=== PATIENT | male | born 1980 | race Caucasian/White ===

== ENCOUNTER 2018-06-24 22:52 | Emergency (ER) | payer OTHER ==
[2018-06-24] MEDS ORDERED: IBUPROFEN 600 MG TABLET ONE (23:49)
[2018-06-24] MEDS ORDERED: AMOXICILLIN 500 MG CAPSULE PO ONE (23:49)
== END 2018-06-25 00:54 | disposition home or self-care (01) ==
LOC: EDH 22:52
DX: K04.7 Periapical abscess without sinus (principal)

== ENCOUNTER 2018-06-26 09:06 | Inpatient (IN) | payer SELFPAY ==
[~2018-06-26] VITALS: Ht 188 cm; Wt 82.1 kg
[2018-06-26] MEDS ORDERED: IBUPROFEN 600 MG TABLET ONE (10:05)
[2018-06-26] MEDS ORDERED: CLINDAMYCIN 600 MG/D5% WATER 50 ML IV ONE ×2 (11:12→23:38)
[2018-06-26] MEDS ORDERED: SODIUM CHLORIDE 0.9% 1000ML 1,000 ML IV ONE (11:12)
[2018-06-26] MEDS: SODIUM CHLORIDE 0.9% 1000ML 1,000 ML IV SCH ×2 (11:23→21:23)
[2018-06-26 11:24] LABS: BASOPHILS % (AUTO) 0.6 % (0.0-5.0); EOSINOPHILS % (AUTO) 8.1 % (0.0-8.0); HEMATOCRIT 43.4 % (42-54); LYMPHOCYTES % (AUTO) 23.1 % (21.0-51.0); MEAN CORPUSCULAR HEMOGLOBIN 29.4 pg (27.0-33.0); MEAN CORPUSCULAR HGB CONC 34.2 g/dL (32.0-36.0); MEAN CORPUSCULAR VOLUME 85.9 fL (79-99); MONOCYTES % (AUTO) 7.9 % (3.0-13.0); NEUTROPHILS % (AUTO) 60.3 % (40.0-77.0); NUCLEATED RED BLOOD CELLS 0.1 % (0.0-0.19); PLATELET COUNT (AUTO) 239 K/uL (130-400); RED BLOOD CELL COUNT(AUTO) 5.05 MIL/uL (4.50-6.20); WHITE BLOOD COUNT (AUTO) 7.5 K/uL (4.8-10.8)
[2018-06-26] MEDS ORDERED: HYDROCODONE/ACETAMINOPHEN 5/325 MG TAB PO PRN ×2 (11:30)
[2018-06-26] MEDS ORDERED: ONDANSETRON HCL 4 MG/2 ML VIAL IV PRN (11:30)
[2018-06-26] MEDS ORDERED: ACETAMINOPHEN 325 MG TAB PO PRN (11:30)
[2018-06-26] MEDS ORDERED: LACTULOSE 20 GM/30 ML UDCUP PO PRN (11:30)
[2018-06-26] MEDS ORDERED: HYDRALAZINE HCL 20 MG/ML VIAL IV PRN (11:30)
[2018-06-26 11:31] LABS: CREATININE 1.3 mg/dL (0.5-1.5); POTASSIUM 3.7 mmol/L (3.5-5.1)
[2018-06-26 11:36] LABS: ALBUMIN 3.7 g/dL (3.5-5.0); BILIRUBIN,TOTAL 0.5 mg/dL (0.2-1.0); TOTAL PROTEIN, SERUM 7.5 g/dL (6.0-8.3)
[2018-06-26 11:47] LABS: HEMOGLOBIN A1C 5.8 % (4.0-6.0)
[2018-06-26] MEDS ORDERED: CLINDAMYCIN 600 MG/D5% WATER 50 ML IV SCH (20:00)
[2018-06-26] MEDS: FAMOTIDINE/PF 20 MG/2 ML VIAL IV SCH (21:00)
[2018-06-26] MEDS ORDERED: FAMOTIDINE/PF 20 MG/2 ML VIAL IV ONE ×2 (21:44→21:48)
[2018-06-26] MEDS ORDERED: HYDROCODONE/ACETAMINOPHEN 5/325 MG TAB ONE (23:43)
[2018-06-27] VITALS (23 sets, daily range): BP systolic 108–146; BP diastolic 61–96
[2018-06-27] MEDS: SODIUM CHLORIDE 0.9% 1000ML 1,000 ML IV SCH ×2 (04:53→22:15)
[2018-06-27 05:43] LABS: INR 0.98 (0.85-1.15); PARTIAL THROMBOPLASTIN TIME 30.3 SEC (26.3-35.5); PROTHROMBIN TIME 10.3 SEC (9.6-11.6)
[2018-06-27] MEDS: FAMOTIDINE/PF 20 MG/2 ML VIAL IV SCH ×2 (08:09→22:13)
[2018-06-27] MEDS: CLINDAMYCIN 600 MG/D5% WATER 50 ML IV SCH ×2 (08:09→15:56)
[2018-06-27] MEDS ORDERED: LACTATED RINGERS 1000ML 1,000 ML IV ONE (09:40)
[2018-06-27] MEDS ORDERED: LIDOCAINE PF 2% 5ML ABBOJECT ONE (09:55)
[2018-06-27] MEDS ORDERED: ROCURONIUM 10MG/1ML SYR 10 MG/ML ML ONE (09:56)
[2018-06-27] MEDS ORDERED: PROPOFOL 10 MG/ML 20ML VIAL IV ONE (09:56)
[2018-06-27] MEDS ORDERED: FENTANYL CITRATE PF 50 MCG/1 ML 2ML VIAL ONE (09:56)
[2018-06-27] MEDS ORDERED: ONDANSETRON HCL 4 MG/2 ML VIAL ONE (09:56)
[2018-06-27] MEDS ORDERED: MIDAZOLAM HCL 1 MG/ML 2ML VIAL ONE (09:56)
[2018-06-27] MEDS ORDERED: NEOMY SULF/POLYMYXIN B SULFATE 1 ML AMPUL IR ONE (10:30)
[2018-06-27] MEDS ORDERED: MEPERIDINE-PF 25 MG/ML SYG ONE (10:52)
[2018-06-27] MEDS: ACETAMINOPHEN 325 MG TAB PO PRN ×2 (13:45→14:09)
--- NOTE | 2018-06-27 17:13 | NUR ---
INITIAL: Met with pt this afternoon to discuss dcp. 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 He mentions that his home is in [place]. Prior to admission pt was independent w ambulation and ADLs. Does not own any DME. Pt states that he will be staying w his friend Kelvin Gonzalez @ [place] and plans to drive his trailer when ready. Discussed $4 prescription drug program avail at [facility] or [facility]. Pt verbalizes understanding. Addendum: 06/27/18 at 1716 by JORDAN BARR CM Amended: Links added.
[2018-06-27] MEDS: IBUPROFEN 800 MG TAB PO PRN (22:14)
[2018-06-28] MEDS: CLINDAMYCIN 600 MG/D5% WATER 50 ML IV SCH ×3 (00:09→16:02)
[2018-06-28 00:15] VITALS: BP 119/64
[2018-06-28 04:30] VITALS: BP 117/72
[2018-06-28] MEDS: SODIUM CHLORIDE 0.9% 1000ML 1,000 ML IV SCH ×3 (05:15→18:30)
[2018-06-28 06:59] LABS: BASOPHILS % (AUTO) 0.4 % (0.0-5.0); EOSINOPHILS % (AUTO) 9.5 % (0.0-8.0); HEMATOCRIT 39.2 % (42-54); LYMPHOCYTES % (AUTO) 31.6 % (21.0-51.0); MEAN CORPUSCULAR HEMOGLOBIN 29.4 pg (27.0-33.0); MEAN CORPUSCULAR HGB CONC 34.3 g/dL (32.0-36.0); MEAN CORPUSCULAR VOLUME 85.7 fL (79-99); MONOCYTES % (AUTO) 9.9 % (3.0-13.0); NEUTROPHILS % (AUTO) 48.6 % (40.0-77.0); NUCLEATED RED BLOOD CELLS 0.1 % (0.0-0.19); PLATELET COUNT (AUTO) 249 K/uL (130-400); RED BLOOD CELL COUNT(AUTO) 4.57 MIL/uL (4.50-6.20); RED CELL DISTRIBUTION WIDTH 13.7 % (11.0-15.5); WHITE BLOOD COUNT (AUTO) 6.9 K/uL (4.8-10.8)
[2018-06-28 07:00] VITALS: BP 126/75
[2018-06-28 07:15] LABS: CREATININE 1.5 mg/dL (0.5-1.5); POTASSIUM 3.7 mmol/L (3.5-5.1)
[2018-06-28] MEDS: FAMOTIDINE/PF 20 MG/2 ML VIAL IV SCH ×2 (08:03→21:23)
[2018-06-28 11:00] VITALS: BP 124/83
[2018-06-28] MEDS: IBUPROFEN 800 MG TAB PO PRN (11:49)
[2018-06-28 16:00] VITALS: BP 123/74
[2018-06-28 19:25] VITALS: BP 142/98
[2018-06-29] VITALS (7 sets, daily range): BP systolic 115–138; BP diastolic 67–92
[2018-06-29] MEDS: CLINDAMYCIN 600 MG/D5% WATER 50 ML IV SCH ×3 (00:39→16:09)
[2018-06-29 06:10] LABS: EOSINOPHILS % (AUTO) 10.4 % (0.0-8.0); HEMATOCRIT 40.1 % (42-54); LYMPHOCYTES % (AUTO) 35.2 % (21.0-51.0); MEAN CORPUSCULAR HEMOGLOBIN 29.4 pg (27.0-33.0); MEAN CORPUSCULAR HGB CONC 34.4 g/dL (32.0-36.0); MEAN CORPUSCULAR VOLUME 85.6 fL (79-99); MONOCYTES % (AUTO) 9.3 % (3.0-13.0); NEUTROPHILS % (AUTO) 44.1 % (40.0-77.0); NUCLEATED RED BLOOD CELLS 0.1 % (0.0-0.19); PLATELET COUNT (AUTO) 254 K/uL (130-400); RED BLOOD CELL COUNT(AUTO) 4.68 MIL/uL (4.50-6.20); RED CELL DISTRIBUTION WIDTH 13.8 % (11.0-15.5); WHITE BLOOD COUNT (AUTO) 6.6 K/uL (4.8-10.8)
[2018-06-29 06:24] LABS: CREATININE 1.3 mg/dL (0.5-1.5); POTASSIUM 3.9 mmol/L (3.5-5.1)
[2018-06-29] MEDS: SODIUM CHLORIDE 0.9% 1000ML 1,000 ML IV SCH ×2 (09:23→16:09)
[2018-06-29] MEDS: IBUPROFEN 800 MG TAB PO PRN (09:34)
[2018-06-29] MEDS: FAMOTIDINE/PF 20 MG/2 ML VIAL IV SCH ×2 (09:34→22:02)
[2018-06-30] MEDS: CLINDAMYCIN 600 MG/D5% WATER 50 ML IV SCH ×3 (00:23→15:41)
[2018-06-30 04:00] VITALS: BP 110/70
[2018-06-30 05:04] LABS: BASOPHILS % (AUTO) 0.8 % (0.0-5.0); HEMATOCRIT 40.6 % (42-54); LYMPHOCYTES % (AUTO) 37.9 % (21.0-51.0); MEAN CORPUSCULAR HEMOGLOBIN 29.5 pg (27.0-33.0); MEAN CORPUSCULAR HGB CONC 34.6 g/dL (32.0-36.0); MEAN CORPUSCULAR VOLUME 85.2 fL (79-99); MONOCYTES % (AUTO) 8.3 % (3.0-13.0); PLATELET COUNT (AUTO) 280 K/uL (130-400); RED BLOOD CELL COUNT(AUTO) 4.77 MIL/uL (4.50-6.20); RED CELL DISTRIBUTION WIDTH 13.9 % (11.0-15.5); WHITE BLOOD COUNT (AUTO) 6.2 K/uL (4.8-10.8)
[2018-06-30 05:34] LABS: CREATININE 1.5 mg/dL (0.5-1.5); POTASSIUM 3.9 mmol/L (3.5-5.1)
[2018-06-30] MEDS: SODIUM CHLORIDE 0.9% 1000ML 1,000 ML IV SCH ×3 (06:05→21:28)
[2018-06-30 08:57] VITALS: BP 129/71
[2018-06-30] MEDS: IBUPROFEN 800 MG TAB PO PRN (09:10)
[2018-06-30] MEDS: FAMOTIDINE/PF 20 MG/2 ML VIAL IV SCH ×2 (09:10→21:28)
[2018-06-30 12:04] VITALS: BP 127/78
[2018-06-30 16:20] VITALS: BP 123/73
[2018-06-30 19:20] VITALS: BP 119/76
[2018-07-01] MEDS: CLINDAMYCIN 600 MG/D5% WATER 50 ML IV SCH ×2 (00:03→09:38)
[2018-07-01 00:08] VITALS: BP 124/87
[2018-07-01 04:18] VITALS: BP 113/63
[2018-07-01 07:56] VITALS: BP 100/69
[2018-07-01] MEDS ORDERED: CLIN300C9 PO (09:07)
[2018-07-01] MEDS: FAMOTIDINE/PF 20 MG/2 ML VIAL IV SCH (09:38)
[2018-07-01 12:15] VITALS: BP 120/79
== END 2018-07-01 15:30 | disposition home or self-care (01) | DRG 137 ==
LOC: EDH 09:06 → EDHIP 09:07 → UNDOADMIN 11:23 → EDHIP 23:19 → 3DH 23:19
PROVIDERS: ADMIT Internal Medicine; ATTEND Internal Medicine
PROC: 0J910ZZ Drainage of Face Subcutaneous Tissue and Fascia, Open Approach (ICD-10-PCS; principal; 2018-06-26)
DX: M27.2 Inflammatory conditions of jaws (principal); L02.01 Cutaneous abscess of face; F31.9 Bipolar disorder, unspecified; K04.7 Periapical abscess without sinus; Z87.891 Personal history of nicotine dependence
CPT/HCPCS: 36415; 70486; 80048; 80053; 83036; 85025; 85610; 85651; 85730; 86140; 87070; 87076; 87205; 93306; G0378; J2001; J2175; J2250; J2405; J2704; J3010; J3490; J7030; J7120

== ENCOUNTER 2018-08-01 19:33 | Emergency (ER) | payer SELFPAY ==
[~2018-08-01 19:33] MED LIST: CLIN300C9 PO
[2018-08-01] MEDS ORDERED: LIDOCAINE HCL-MPF 1% 2ML VIAL ONE (19:59)
[2018-08-01] MEDS ORDERED: CEFTRIAXONE SODIUM 1 GM ONE (19:59)
[2018-08-01] MEDS ORDERED: ONDANSETRON ODT 4 MG TAB ONE (20:00)
[2018-08-01] MEDS ORDERED: MORPHINE SULFATE 5 MG/ML VIAL ONE (20:00)
== END 2018-08-01 20:22 | disposition home or self-care (01) ==
LOC: EDH 19:33
DX: K08.89 Other specified disorders of teeth and supporting structures (principal); Z87.891 Personal history of nicotine dependence
CPT/HCPCS: 96372 ×2; 99283; J0696; J2270; J3490

== ENCOUNTER 2018-08-29 18:09 | Emergency (ER) | payer SELFPAY | END 2018-08-29 19:05 | disposition home or self-care (01) | LOC: EDH 18:09 | DX: K04.7 Periapical abscess without sinus (principal); Z72.0 Tobacco use ==